=== PATIENT | female | born 1990 | race Hispanic/Latino ===

== ENCOUNTER 2019-10-04 14:00 | Emergency (ER) | payer OTHER, SELFPAY ==
--- NOTE | ~2019-10-04 | XR_ITS ---
XR chest 2V DATE: 10/04/2019 14:37 INDICATION: Chest pain, acute left axillary pain. Unable to fully abduct left arm. TECHNIQUE: PA and lateral views COMPARISON: 09/12/2015 PA and lateral views FINDINGS: Surgical clips overlie the aorticopulmonary window possibly due to PDA clip. Normal heart size. No hilar or mediastinal enlargement. No pulmonary infiltrate or consolidation, ple ural effusion or pulmonary vascular congestion or pneumothorax is detected. IMPRESSION: No active cardiopulmonary disease Reviewed, dictated and finalized at location B.
[2019-10-04 14:03] VITALS: BP 136/68; PULSE 119; RESP 20; TEMP 37.6; O2SAT 100
--- NOTE | 2019-10-04 14:07 | ECG_ITS ---
Measurements Intervals [place] Rate: 118 P: 71 MA: 145 QRS: 79 QRSD: 78 T: -4 QT: 296 QTc: 415 Interpretive Statements SINUS TACHYCARDIA DELAYED PRECORDIAL R/S TRANSITION BORDERLINE ST-T WAVE ABNORMALITY- INF/LAT LEADS BASELINE ARTIFACT- I, II, III ABNORMAL ECG Electronically Signed On 10-04-2019 16:19:44 CDT by Bernardo Campos D.O.
--- NOTE | 2019-10-04 14:14 | ED.ARRPALP ---
HPI - Arrhythmia/Palpitations General Chief Complaint: Arrhythmia/Palpitations <Dany Sanchez PA-C Last Filed: 10/04/19 15:58> Stated Complaint: abnormal ekg <Dany Sanchez PA-C Last Filed: 10/04/19 15:58> Time Seen by Provider: 10/04/19 14:08 <Dany Sanchez PA-C Last Filed: 10/04/19 15:58> Source: patient and family <Dany Sanchez PA-C Last Filed: 10/04/19 15:58> Mode of arrival: ambulatory <Dany Sanchez PA-C Filed: 10/04/19 15:58> Limitations: no limitations <Dany Sanchez PA-C Filed: 10/04/19 15:58> History of Present Illness HPI narrative: Patient is a 29-year-old female who presents with left-sided chest discomfort x1 week noting aching pain that is a sharp pain worse with breathing activity and movement and palpation patient denies similar occurrence has tried [id number] medications with minimal improvement was evaluated by primary care and referred to emergency department for further evaluation patient denies recent illness or sick contacts or other complaints pain does not radiate is located to the left chest wall laterally <Dany Sanchez PA-C Last Filed: 10/04/19 15:58> Related Data Home Medications: Home Medications Medication Instructions Recorded Confirmed albuterol sulfate 1 inh INHALATION QID 10/04/19 <Dany Sanchez PA-C Last Filed: 10/04/19 15:58> Allergies/Adverse Reactions: Allergies Allergy/AdvReac Type Severity Reaction Status Date / Time No Known Allergies Allergy Verified 10/04/19 14:11 <Dany Sanchez PA-C Last Filed: 10/04/19 15:58> Review of Systems Review of Systems: All systems reviewed & are unremarkable except as noted in HPI and below <Dany Sanchez PA-C Last Filed: 10/04/19 15:58> PMFSH Family History Family History: Family History (Updated 03/30/18 @ 09:57 by DOCTOR UNKNOWN) Mother Hypertension Father Patient's father is in good health Grandparent Hypertension Family history of type 2 diabetes mellitus <Dany Sanchez PA-C Last Filed: 10/04/19 15:58> Social History Social History: Social History Smoking status: Never smoker Second hand tobacco smoke exposure: No Alcohol intake: never <Dany Sanchez PA-C - Last Filed: 10/04/19 15:58> Exam Narrative: Exam Narrative: GENERAL: Well-appearing, well-nourished, and in no acute distress. HEAD: Normocephalic, atraumatic. EYES: PERRLA and EOMI. ENT: Nares clear, no rhinorrhea or epistaxis. Mucous membranes moist. CHEST: Clear to auscultation. No respiratory distress. No wheezes rales or rhonchi. Reproducible left chest wall tenderness no deformities rash or other abnormalities noted HEART: Regular rate and rhythm. No murmur heard. Normal peripheral pulses. ABDOMEN: Soft, nontender, nondistended EXTREMITIES: Normal range of motion. No edema. SKIN: Warm, dry, no rash. NEURO: No focal deficits. Alert and oriented x3. PSYCH: Normal mood and affect. <Dany Sanchez PA-C - Last Filed: 10/04/19 15:58> Course Course Emergency Course: Discussed case with patient and family patient resting comfortably in the room aware of case findings treatment plan and diagnosis has remained hemodynamically stable in no distress felt appropriate for outpatient reevaluation by primary care <Dany Sanchez PA-C - Last Filed: 10/04/19 15:58> Vital Signs Vital signs: Vital Signs Temperature 99.6 F 10/04/19 14:03 Pulse Rate 119 H 10/04/19 14:03 Respiratory Rate 20 10/04/19 14:03 Blood Pressure 136/68 10/04/19 14:03 Pulse Oximetry 100 10/04/19 14:03 Temperature 99.6 F 10/04/19 14:03 Pulse Rate 102 H 10/04/19 16:15 Respiratory Rate 18 10/04/19 16:15 Blood Pressure 118/74 10/04/19 16:15 Pulse Oximetry 100 10/04/19 16:15 <Dany Sanchez PA-C - Last Filed: 10/04/19 15:58
[2019-10-04 14:32] LABS: Basophils Absolute Auto 0.1 K/mm3 (0.0-0.1); Basophils Percent Auto 0.6 % (0.2-1.2); Eosinophils Absolute Auto 0.1 K/mm3 (0-0.3); Eosinophils Percent Auto 1.1 % (0-4.4); Hemoglobin 14.8 g/dL (12.0-15.0); Immature Granulocyte Absolute 0.04 K/mm3 (0.00-0.031); Immature Granulocyte Percent A 0.5 % (0-0.5); Lymphocytes Absolute Auto 2.06 K/mm3 (0.9-3.2); Lymphocytes Percent Auto 23.6 % (18.3-44.2); Mean Corpuscular HGB Conc 32.9 g/dl (32-36); Mean Corpuscular Hemoglobin 27.6 pg (26-34); Mean Corpuscular Volume 83.8 fl (80-100); Mean Platelet Volume 8.6 fl (7.4-10.4); Monocytes Absolute Auto 0.7 K/mm3 (0.1-0.6); Monocytes Percent Auto 7.7 % (2.6-8.5); Neutrophils Absolute Auto 5.8 K/mm3 (1.3-6.7); Neutrophils Percent Auto 66.5 % (45.5-73.1); Platelet Count Result 315 k/mm3 (150-375); Red Blood Count 5.37 M/mm3 (4.2-5.4); Red Cell Distribution Width 12.9 % (11.5-14.5); White Blood Count 8.7 K/mm3 (4.5-10.0)
--- NOTE | 2019-10-04 14:36 | PC.NURSE ---
pt in radiology at this time.
[2019-10-04 14:41] LABS: INR 0.9; Prothrombin Time 11.8 Seconds (11.1-14.7)
[2019-10-04 14:42] LABS: Partial Thromboplastin Time 27.8 SECONDS (22.3-36.8)
[2019-10-04 14:44] LABS: Blood Urea Nitrogen 11 mg/dL (7-17); Calcium 9.1 mg/dL (8.4-10.2); Carbon Dioxide 26 mmol/L (22-30); Chloride 104 mmol/L (98-107); Estimated Glomerular Filt Rate > 60; Glucose 115 mg/dL (65-105); Sodium 139 mmol/L (137-145)
[2019-10-04] MEDS: SODIUM CHLORIDE 0.9% IV 1,000 ML 999 ML IV CONT (14:51)
[2019-10-04] MEDS: KETOROLAC 30 MG/ML VIAL (*BKC) IV PUSH (14:52)
[2019-10-04 14:55] LABS: D Dimer 0.27 ug/mL (<0.48)
[2019-10-04 14:56] LABS: Troponin I < 0.012 ng/mL (0.000-0.034)
[2019-10-04 15:00] LABS: Amphetamine Screen Urine Negative (Negative); Barbiturate Screen Urine Negative (Negative); Benzodiazepines Screen Urine Negative (Negative); Cannabinoid Screen Urine Negative (Negative); Cocaine Screen Urine Negative (Negative); Methadone Screen Urine Negative (Negative); Opiate Screen Urine Negative (Negative); Phencyclidine Screen Urine Negative (Negative)
[2019-10-04 16:15] VITALS: BP 118/74; PULSE 102; RESP 18; O2SAT 100
== END 2019-10-04 16:16 | disposition home or self-care (01) ==
PROVIDERS: Emergency Medicine Emergency Medical Services; Emergency Provider Emergency Medicine; PCP Emergency Medicine
DX: R00.2 Palpitations (principal); R07.9 Chest pain, unspecified; R00.0 Tachycardia, unspecified; R94.31 Abnormal electrocardiogram [ECG] [EKG]
CPT/HCPCS: 36415; 71046; 80048; 80307; 84443; 84484; 85025; 85380; 85610; 85730; 93005; 96361; 96374; 99284; J1885; J7030

== ENCOUNTER 2022-03-22 13:17 | Emergency (ER) | payer OTHER, SELFPAY ==
[2022-03-22 13:28] VITALS: BP 106/69; PULSE 150; RESP 16; TEMP 38.2; O2SAT 99
--- NOTE | 2022-03-22 13:46 | ED.URI ---
HPI - URI/Sore Throat General Chief Complaint: Upper Respiratory Infection Stated Complaint: Headache/Sore Throat/Bodyache Time Seen by Provider: 03/22/22 13:40 Source: patient Mode of arrival: ambulatory Limitations: no limitations History of Present Illness HPI Narrative: Concepcion is a 31-year-old female patient presenting to clinic today with complaints of headache, sore throat, body aches, chills, and ear pain since yesterday. MD elicited complaint: sore throat and nasal congestion Related Data Allergies Allergy/AdvReac Type Severity Reaction Status Date / Time No Known Allergies Allergy Verified 03/22/22 13:19 Review of Systems Review of Systems: Pertinent positives per HPI. Patient denies any rash, headache, visual changes, dizziness, shortness of breath, chest pain, palpitations, nausea, vomiting, diarrhea, constipation, abdominal pain, or any urinary issues. [facility] Family History Family History Mother Hypertension Father Patient's father is in good health Grandparent Hypertension Family history of type 2 diabetes mellitus Social History Social History Smoking status: Never smoker Second hand tobacco smoke exposure: No Alcohol intake: never Comments At the time of my signature, I reviewed and agree with the nursing past medical, surgical, social, and family history. There is no relevant family history pertinent to the patient complaint. Exam Narrative: General: Well-developed, well nourished, in no apparent distress Head: Normocephalic, atraumatic Eyes: Pupils equally round and reactive to light bilaterally, EOM intact, sclera and conjunctive clear, no discharge, lids normal Ears: TMs intact , dull, congested, ear canals clear, no drainage, grossly hearing normal. Nose: Nares patent, clear nasal discharge, no inflammation, no sinus tenderness. Mouth: Oral pharynx without lesions or masses, good dentition, MMM. Oropharynx with mild tonsillar enlargement Neck: Supple, trachea midline, mild enlargement of anterior cervical nodes, no thyroid masses or goiter palpable. Cardio: Regular rate and rhythm, s1 and s2 normal, no murmur appreciated. Resp: Clear to auscultation bilaterally, no rhonchi, rales, wheezing or rubs Course Course Emergency Course: Portions of this record may have been created with voice recognition software. Level of Care: Express Care Visit Vital Signs Vital signs: Vital Signs Temperature 38.2 C H 03/22/22 13:28 Pulse Rate 150 H 03/22/22 13:28 Respiratory Rate 16 03/22/22 13:28 Blood Pressure 106/69 03/22/22 13:28 Pulse Oximetry 99 03/22/22 13:28 Oxygen Delivery Room Air 03/22/22 13:28 Temperature 38.2 C H 03/22/22 13:28 Pulse Rate 150 H 03/22/22 13:28 Respiratory Rate 16 03/22/22 13:28 Blood Pressure 106/69 03/22/22 13:28 Pulse Oximetry 99 03/22/22 13:28 Oxygen Delivery Room Air 03/22/22 13:28 Vital signs reviewed MDM - URI/Sore Throat MDM Narrative Medical decision making narrative: At the time of visit patient is resting comfortably on the exam table. COVID, flu, strep testing were performed. all testing was negative. I suspect the patient has URI/ pharyngitis/ eustachian tube dysfunction/viral syndrome. Prescription for prednisone was sent to pharmacy. Supportive measures were discussed with the patient she voiced understanding of discharge instructions and agrees to treatment plan. Differential Diagnosis Differential diagnosis: Likely upper respiratory infection, otitis media, sinusitis, viral infection, bronchitis, influenza, pharyngitis and other ( COVID) Lab Data Labs: Influenza A Screen Negative Reference Range: Negative Influenza B Screen Negative Reference Range: Negative
== END 2022-03-22 14:14 | disposition home or self-care (01) ==
PROVIDERS: Emergency Provider Nurse Practitioner Family; PCP Nurse Practitioner Family
DX: B34.9 Viral infection, unspecified (principal); H69.93 Unspecified Eustachian tube disorder, bilateral; Z20.822 Contact with and (suspected) exposure to COVID-19
CPT/HCPCS: 87081; 87426; 87804; 87880; 99213; C9803; G0463

== ENCOUNTER 2023-12-17 14:50 | Emergency (ER) | payer OTHER, SELFPAY ==
[2023-12-17 15:05] VITALS: BP 103/71; PULSE 130; RESP 16; TEMP 37.7; O2SAT 97
--- NOTE | 2023-12-17 16:11 | ED.URI ---
HPI - URI/Sore Throat General Chief Complaint: Upper Respiratory Infection Stated Complaint: runny nose,congestion,increased thirst,diarrhea Time Seen by Provider: 12/17/23 16:12 Source: patient, RN notes reviewed and old records reviewed Mode of arrival: ambulatory Limitations: no limitations History of Present Illness HPI Narrative: Patient presents with complaints of congestion, runny nose, increased thirst abdominal cramping and diarrhea. Symptoms began this morning. She has not been taking any medication for her symptoms other than albuterol, which she states that she has been using more frequently than usual.. She denies any fever, chills, sweats. Has had 2 episodes of vomiting. Voices no other concerns or complaints at this time Related Data Home Medications Medication Instructions Recorded Confirmed albuterol sulfate 90 mcg/actuation See Rx Instructions .Route .COMPLEX 12/17/23 12/17/23 aerosol inhaler atropine 1 % eye drops See Rx Instructions .Route .COMPLEX 12/17/23 12/17/23 escitalopram oxalate 10 mg tablet 10 mg PO DAILY 12/17/23 12/17/23 loratadine 10 mg tablet (Allergy 10 mg PO DAILY 12/17/23 12/17/23 Relief (loratadine)) montelukast 10 mg tablet 10 mg PO DAILY 12/17/23 12/17/23 sumatriptan succinate 25 mg tablet See Rx Instructions .Route .COMPLEX 12/17/23 12/17/23 Allergies Allergy/AdvReac Type Severity Reaction Status Date / Time No Known Allergies Allergy Verified 12/17/23 15:10 Review of Systems Review of Systems: All systems reviewed & are unremarkable except as noted in HPI and below Constitutional: Constitutional: Reports as per HPI and Reports no additional constitutional complaints ENT: Reports system reviewed and no additional complaints, except as documented Cardiovascular: Cardiovascular: Reports no additional cardiovascular complaints Respiratory: Respiratory: Reports as per HPI, Reports no additional respiratory complaints and Reports cough Gastrointestinal: Gastrointestinal: Reports as per HPI, Reports no additional gastrointestinal complaints, Reports GI cramping, Reports diarrhea, Denies nausea and Reports vomiting Endocrine: Endocrine: Reports polydipsia PMFSH Family History Family History Mother Hypertension Father Patient's father is in good health Grandparent Hypertension Family history of type 2 diabetes mellitus Social History Social History Smoking status: Never smoker Second hand tobacco smoke exposure: No Alcohol intake: never Comments At the time of my signature, I reviewed and agree with the nursing past medical, surgical, social, and family history. There is no relevant family history pertinent to the patient complaint. Exam Const: General: cooperative, no acute distress, alert and awake Orientation/consciousness: oriented to person, oriented to place and oriented to time HENMT: Head: normal to inspection Ears: TM's normal bilaterally Face/Nose/Sinus: Nasal discharge present clear Mouth: Yes moist mucous membranes Throat: posterior oropharynx normal Resp: Effort & Inspection: normal respiratory effort and able to speak in complete sentences Auscultation: clear to auscultation bilaterally, no crackles, no rales, no rhonchi and no wheezes Cardio: Palpation: normal PMI Rate: regular rate Rhythm: regular rhythm Heart sounds: S1 normal heart sound present and S2 normal heart sound present GI: Inspection: normal to inspection GI Palp: Yes Soft to palpation, No Tenderness to palpation present (GI) and No Guarding due to palpation present (GI) Auscultation: normal bowel sounds Neuro: General: oriented to person, oriented to place and oriented to time Cranial nerves: Yes CN's II-XII intact bilaterally Psych: Appearance: grossly normal Thought process: Normal thought process present Insight: Good insight present (Psych) Judgement:
[2023-12-17 16:31] LABS: Glucose Point of Care 115 mg/dl (65-105)
[2023-12-17 16:35] LABS: EDCOVIDSCREEN Negative (Negative)
[2023-12-17 16:36] LABS: EDINFLUASCREEN Negative (Negative); EDINFLUBSCREEN Negative (Negative)
[2023-12-17] MEDS: ONDANSETRON HCL ODT 4 MG TABLET PO (16:52)
== END 2023-12-17 16:58 | disposition home or self-care (01) ==
PROVIDERS: Emergency Provider Nurse Practitioner Family; PCP Nurse Practitioner Family
DX: B34.9 Viral infection, unspecified (principal); Z20.822 Contact with and (suspected) exposure to COVID-19
CPT/HCPCS: 82948; 87426; 87804; 99213; A9270; G0463

== ENCOUNTER 2024-03-11 18:48 | Emergency (ER) | payer OTHER, SELFPAY ==
[2024-03-11 19:01] VITALS: BP 129/58; PULSE 114; RESP 16; TEMP 36.3; O2SAT 99
[2024-03-11 19:11] LABS: EDINFLUASCREEN Negative (Negative); EDINFLUBSCREEN Negative (Negative)
[2024-03-11 19:12] LABS: EDINFLUASCREEN Negative (Negative); EDINFLUBSCREEN Negative (Negative)
--- NOTE | 2024-03-11 19:14 | ED_ITS ---
HPI - URI/Sore Throat General Chief Complaint: Upper Respiratory Infection Stated Complaint: cough,congestion,bodyache Time Seen by Provider: 03/11/24 19:14 Source: patient, RN notes reviewed and old records reviewed Mode of arrival: ambulatory Limitations: no limitations History of Present Illness HPI Narrative: Patient with asthma presents with complaints of body aches, cough, wheezing. She is concerned because she was exposed to a child with influenza a couple of days ago. She began with symptoms 2 days ago as well. She reports that she feels as though cough is worsening. She denies any fever or shortness of breath. She does report that she has been using her albuterol inhaler more than she usually does. She is able to speak in full sentences with no difficulty Related Data Home Medications ?Medication ?Instructions ?Recorded ?Confirmed ?Last Taken ?Type albuterol sulfate 90 mcg/actuation See Rx Instructions .Route .COMPLEX 12/17/23 03/11/24 Unknown History aerosol inhaler atropine 1 % eye drops See Rx Instructions .Route .COMPLEX 12/17/23 12/17/23 Unknown History escitalopram oxalate 10 mg tablet 10 mg PO DAILY 12/17/23 03/11/24 Unknown History loratadine 10 mg tablet (Allergy 10 mg PO DAILY 12/17/23 03/11/24 Unknown History Relief (loratadine)) montelukast 10 mg tablet 10 mg PO DAILY 12/17/23 03/11/24 Unknown History sumatriptan succinate 25 mg tablet See Rx Instructions .Route .COMPLEX 12/17/23 03/11/24 Unknown History Allergies Allergy/AdvReac Type Severity Reaction Status Date / Time No Known Allergies Allergy Verified 03/11/24 18:54 Review of Systems Review of Systems: All systems reviewed & are unremarkable except as noted in HPI and below Constitutional: Constitutional: Reports no additional constitutional complaints and Reports body ache(s) ENT: Reports system reviewed and no additional complaints, except as documented Cardiovascular: Cardiovascular: Reports no additional cardiovascular complaints Respiratory: Respiratory: Reports no additional respiratory complaints, Report s chest congestion, Reports cough and Reports wheezing Gastrointestinal: Gastrointestinal: Reports no additional gastrointestinal complaints [facility] Family History Family History Mother Hypertension Father Patient's father is in good health Grandparent Hypertension Family history of type 2 diabetes mellitus Social History Social History Smoking status: Never smoker Second hand tobacco smoke exposure: No Alcohol intake: never Comments At the time of my signature, I reviewed and agree with the nursing past medical, surgical, social, and family history. There is no relevant family history pertinent to the patient complaint. Exam Const: General: cooperative, no acute distress, alert and awake Orientation/consciousness: oriented to person, oriented to place and oriented to time HENMT: Head: normal to inspection Ears: TM's normal bilaterally Mouth: Yes moist mucous membranes Resp: Effort & Inspection: normal respiratory effort and able to speak in complete sentences Auscultation: clear to auscultation bilaterally, no crackles, no rales, no rhonchi, wheezes and diminished lung sounds Cardio: Palpation: normal PMI Rate: regular rate Rhythm: regular rhythm Heart sounds: S1 normal heart sound present and S2 normal heart sound present Neuro: General: oriented to person, oriented to place and oriented to time Cranial nerves: Yes CN's II-XII intact bilaterally Psych: Appearance: grossly normal Thought process: Normal thought process present Insight: Good insight present (Psych) Judgement: Good judgement present (Psych) Course Course Level of Care: Express Care Visit Vital Signs Vital signs: Vital Signs Temperature 97.4 F L 03/11/24 19:01 Pulse Rate 114 H 03/11/24 19:01 Respiratory Rate 16 03/11/24 19:01 Blood Pressure 129/58 L 03/11/24 19:01 Pulse Oximetry 99 03/11/24 19:01 Oxygen Delivery Room Air 03/11/24 19:01 Temperature 97.4 F L 03/11/24 19:01 Pulse Rate 114 H 03/11/24 19:01 Respiratory Rate 16 03/11/24 19:01 Blood Pressure 129/58 L 03/11/24 19:01 Pulse Oximetry 99 03/11/24 19:01 Oxygen Delivery Room Air 03/11/24 19:01 Reviewed MDM - URI/Sore Throat MDM Narrative Medical decision making narrative: Negative COVID and flu. Patient feels as though her asthma is beginning to exacerbate. Round of steroids prescribed, albuterol refilled. Patient in no distress Discharge instructions reviewed with patient, as well as provided in writing per nursing staff. The instructions also include specific and strict return/GO TO THE ER as well as f/u information. All questions have been answered, and the patient deny any further questions with discharge and discharge plan. Some parts of this dictation were generated by voice recognition software and may contain typographical and/or grammatical inaccuracies. Differential Diagnosis Differential diagnosis: Likely upper respiratory infection, otitis media, sinusitis and influenza Medical Records Attestation: I reviewed the patient's medical records. Lab Data Attestation: I reviewed the patient's lab results. Labs: Lab Results 03/11/24 03/11/24 Range/Units 19:06 19:11 POC Influenza A Ag Negative Negative (Negative) POC Influenza B Ag Negative Negative (Negative) Discharge Plan Discharge Clinical Impression: Upper respiratory infection Qualifiers: URI type: unspecified viral URI Qualified Code(s): J06.9 - Acute upper respiratory infection, unspecified Patient Disposition: Home, Self-Care Condition: Stable Instructions: Antibiotic Form, Asthma (ED) Additional Instructions: Take medications as prescribed. Follow-up with primary care provider. Emergency department for new or worse symptoms Patient Language: [place] Prescriptions: New prednisone 50 mg tablet 50 mg PO DAILY Qty: 5 0RF albuterol sulfate [Ventolin HFA] 90 mcg/actuation HFA aerosol inhaler 2 puff inhalation QID PRN (Reason: shortness of breath or wheezing) Qty: 8.5 0RF No Action sumatriptan succinate 25 mg tablet See Rx Instructions .ROUTE .COMPLEX Rx Instructions: Rx montelukast 10 mg tablet 10 mg PO DAILY albuterol sulfate 90 mcg/actuation HFA aerosol inhaler See Rx Instructions .ROUTE .COMPLEX Rx Instructions: Rx atropine 1 % drops See Rx Instructions .ROUTE .COMPLEX Rx Instructions: Rx loratadine [Allergy Relief (loratadine)] 10 mg tablet 10 mg PO DAILY escitalopram oxalate 10 mg tablet 10 mg PO DAILY Follow-up/Referrals: Joselito,Victor Hugo Palomares APRN [Primary Care Provider] - 2 Weeks Time of Disposition: 19:18
[2024-03-11 19:23] LABS: EDCOVIDSCREEN Negative (Negative)
== END 2024-03-11 19:22 | disposition home or self-care (01) ==
PROVIDERS: Emergency Provider Nurse Practitioner Family; PCP Nurse Practitioner Family
DX: J06.9 Acute upper respiratory infection, unspecified (principal); Z79.899 Other long term (current) drug therapy; Z20.822 Contact with and (suspected) exposure to COVID-19
CPT/HCPCS: 87426; 87804; 99213; G0463